=== PATIENT | female | born 1990 | race Caucasian/White ===

== ENCOUNTER 2017-05-02 17:43 | Emergency (ER) | payer OTHER ==
[~2017-05-02] VITALS: Ht 165.1 cm; Wt 92.6 kg
[2017-05-02 18:02] VITALS: BP 000/00
== END 2017-05-02 20:29 | disposition left against medical advice (07) ==
LOC: EME 17:43
DX: F41.0 Panic disorder [episodic paroxysmal anxiety] (principal); Z53.21 Procedure and treatment not carried out due to patient leaving prior to being seen by health care provider